=== PATIENT | female | born 1980 | race Caucasian/White ===

== ENCOUNTER 2024-11-19 22:55 | Emergency (ER) | payer OTHER ==
[~2024-11-19] VITALS: Ht 154.9 cm; Wt 92.1 kg
[~2024-11-19 22:55] MED LIST: ESTR2 PO; GABA300 PO; OXYACE5T PO; TRAZ50 PO
[2024-11-19 22:59] VITALS: BP 163/107
== END 2024-11-20 01:28 | disposition home or self-care (01) ==
LOC: ER 22:55
DX: S93.401A Sprain of unspecified ligament of right ankle, initial encounter (principal); S69.81XA Other specified injuries of right wrist, hand and finger(s), initial encounter; F17.290 Nicotine dependence, other tobacco product, uncomplicated; Z88.5 Allergy status to narcotic agent; Z91.010 Allergy to peanuts; Z59.89 Other problems related to housing and economic circumstances; W18.42XA Slipping, tripping and stumbling without falling due to stepping into hole or opening, initial encounter
CPT/HCPCS: 29515; 73110; 73610; 99284-25

== ENCOUNTER 2025-03-10 09:47 | Day surgery (SDC) | payer OTHER ==
[~2025-03-10] VITALS: Ht 154.9 cm; Wt 95.4 kg
[~2025-03-10 09:47] MED LIST changes: +FentaNYL Citrate 50 MCG/ML 2 ML Injection ONE; +Ketorolac Tromethamine 30mg Vial ONE; +Midazolam HCl 1MG / ML 2ML Vial ONE
[2025-03-10] MEDS ORDERED: PRAMIPEXOLE DI1.5 M1 PO (10:38)
[2025-03-10] MEDS ORDERED: METF500 PO (10:39)
[2025-03-10] MEDS ORDERED: METO25ER PO (10:39)
[2025-03-10] MEDS ORDERED: ESCI20 PO (10:39)
[2025-03-10] MEDS ORDERED: OMEP20ER PO (10:40)
[2025-03-10] MEDS ORDERED: Diclofenac Pota50 MG PO (10:40)
[2025-03-10 11:44] VITALS: BP 133/74
--- NOTE | 2025-03-10 11:44 | NUR ---
03/10/25 1144 Douglas Dominguez PT INSTRUCTED TO MONITOR B/P AT HOME, AND FOLLOW UP WITH PCP NEEDED.
== END 2025-03-10 12:00 | disposition home or self-care (01) ==
LOC: ORSCSDS 09:47
PROVIDERS: Orthopaedic Surgery
PROC: 01N54ZZ Release Median Nerve, Percutaneous Endoscopic Approach (ICD-10-PCS; principal; 2025-03-10 11:30)
DX: G56.01 Carpal tunnel syndrome, right upper limb (principal); E78.5 Hyperlipidemia, unspecified; I10 Essential (primary) hypertension; G25.81 Restless legs syndrome; E66.9 Obesity, unspecified; Z68.39 Body mass index [BMI] 39.0-39.9, adult; Z79.84 Long term (current) use of oral hypoglycemic drugs; Z79.899 Other long term (current) drug therapy; F17.290 Nicotine dependence, other tobacco product, uncomplicated
CPT/HCPCS: J1885; J2250; J2704; J3010

== ENCOUNTER 2025-04-09 20:46 | Emergency (ER) | payer OTHER ==
[~2025-04-09] VITALS: Ht 154.9 cm; Wt 94.3 kg
[~2025-04-09 20:46] MED LIST changes: +Diclofenac Pota50 MG PO; +ESCI20 PO; -FentaNYL Citrate 50 MCG/ML 2 ML Injection ONE; -Ketorolac Tromethamine 30mg Vial ONE; +METF500 PO; +METO25ER PO; -Midazolam HCl 1MG / ML 2ML Vial ONE; +OMEP20ER PO; +PRAMIPEXOLE DI1.5 M1 PO
[2025-04-09] MEDS ORDERED: NS 1,000 ML IV SCH (20:55)
[2025-04-09] MEDS ORDERED: Ondansetron 4 MG SoluTab SL ONE (20:55)
[2025-04-09] MEDS ORDERED: Pantoprazole Sodium 40 MG Injection IV ONE (21:00)
[2025-04-09 21:26] LABS: BASOPHILS ABSOLUTE AUTO 0.07 K/mm3 (0.00-0.23); BASOPHILS PERCENT AUTO 1 % (0-2); EOSINOPHILS ABSOLUTE AUTO 0.22 K/mm3 (0.00-0.68); EOSINOPHILS PERCENT AUTO 3 % (0-6); Hematocrit 37.9 % (33.0-51.0); Hemoglobin 12.4 g/dL (11.5-16.0); IMMATURE GRAN ABSOLUTE AUTO 0.03 K/mm3 (0.00-0.10); IMMATURE GRAN PERCENT AUTO 0 % (0-1); LYMPHOCYTES ABSOLUTE AUTO 2.93 K/mm3 (0.84-5.20); LYMPHOCYTES PERCENT AUTO 35 % (21-46); MONOCYTES ABSOLUTE AUTO 0.59 K/mm3 (0.16-1.47); MONOCYTES PERCENT AUTO 7 % (4-13); Mean Corpuscular HGB Conc 32.7 g/dL (31.5-36.5); Mean Corpuscular Volume 93 fL (80-100); NEUTROPHILS ABSOLUTE AUTO 4.58 K/mm3 (1.96-9.15); NEUTROPHILS PERCENT AUTO 54 % (41-73); NRBC ABSOLUTE 0.00 K/mm3 (0.00-0.02); NRBC Auto 0.0 /100 WBC (0.0-0.2); Platelet Count 363 K/mm3 (150-400); RDW Coefficient Variation 13.3 % (11.7-14.2); RDW Standard Deviation 45.4 fL (35.1-46.3)
[2025-04-09 21:44] LABS: Alanine Aminotransfer (ALT/SGP 148.0 U/L (12-78); Albumin, Blood 3.6 g/dL (3.4-5.0); Albumin/Globulin Ratio 1.1 (0.8-1.8); Anion Gap 7.0 mmol/L (3-11); Aspartate Aminotrans (AST/SGOT 71.0 U/L (12-37); Bilirubin, Total 1.3 mg/dL (0.1-1.0); Blood Urea Nitrogen 9.0 mg/dL (8-24); CO2, Blood 29.0 mmol/L (21-32); Calcium, Blood 8.7 mg/dL (8.5-10.1); Chloride, Blood 106.0 mmol/L (98-108); Creatinine, Blood 0.88 mg/dL (0.40-1.00); Globulin, Blood 3.4 g/dL (2.2-4.0); Glucose, Blood 108.0 mg/dL (70-99); Potassium, Blood 3.9 mmol/L (3.5-5.5); Sodium, Blood 138.0 mmol/L (136-145); Total Protein, Blood 7.0 g/dL (6.4-8.2)
[2025-04-09] MEDS ORDERED: RX Prepack 2 Tabs Ondansetron ODT 4MG UD ONE (23:30)
[2025-04-09] MEDS ORDERED: PANT40 PO (23:34)
[2025-04-09] MEDS ORDERED: ONDA4ODT MM (23:34)
[2025-04-10 00:30] VITALS: BP 133/82
== END 2025-04-10 00:40 | disposition home or self-care (01) ==
LOC: ER 20:46
PROVIDERS: Emergency Medicine
DX: K92.0 Hematemesis (principal); R74.01 Elevation of levels of liver transaminase levels; F17.290 Nicotine dependence, other tobacco product, uncomplicated
CPT/HCPCS: 71045; 80053; 83605; 83690; 84484; 85025; 93005; 93010; 96361; 96374; 99285-25; A9270; J2470; J7030